=== PATIENT | female | born 1990 | race Caucasian/White ===

== ENCOUNTER → 2019-02-03 | Outpatient (REF) | payer OTHER | LOC: M LAB REF 11:38 | PROVIDERS: ATTEND Obstetrics & Gynecology | DX: Z12.4 Encounter for screening for malignant neoplasm of cervix (principal) ==

== ENCOUNTER → 2020-08-09 | Outpatient (CLI) | payer OTHER ==
--- NOTE | 2020-08-09 10:31 | REP ---
INDICATION: RIHGT KNEE PAIN. COMPARISON: None. TECHNIQUE: AP, lateral, sunrise and tunnel views of the right knee FINDINGS: Osseous structures and joint spaces are essentially age-appropriate. No overt osteoarthritic degenerative changes are appreciated. No obvious effusion. No acute or healed injury identified. IMPRESSION: Age-appropriate right knee radiographs. <Electronically signed by Ignacio Gomez > 08/09/20 1025
== END ==
LOC: M SOG 09:25
PROVIDERS: ATTEND Orthopaedic Surgery Sports Medicine
DX: S83.281A Other tear of lateral meniscus, current injury, right knee, initial encounter (principal); X58.XXXA Exposure to other specified factors, initial encounter; Y92.9 Unspecified place or not applicable

== ENCOUNTER → 2020-08-19 | Outpatient (CLI) | payer OTHER ==
--- NOTE | 2020-08-19 17:58 | REP ---
INDICATION: MENISCUS TEAR. COMPARISON: Comparison knee radiographs are from August 09, 2020.. TECHNIQUE: Axial, coronal, and sagittal imaging planes utilized. T1, proton density, and T2 weighted scans are obtained in the usual fashion with without fat saturation. FINDINGS: There is a fairly large joint effusion filling the suprapatellar bursa. No Monzon's cyst is appreciated. There are small medial and lateral suprapatellar plica and some redundant synovium. There is extra-articular T2 hyperintense edema in the prepatellar soft tissues. Patellar tendon is intact. Quadriceps tendon is unremarkable. Anterior and posterior cruciate ligaments are intact. There is no evidence of medial or lateral collateral ligament disruption. No medial or lateral meniscal tear is appreciated. There is moderate partial thickness chondromalacia lesion in the medial femoral condyle posteriorly. This measures 8 mm in medial to lateral span by 6 mm anterior to posterior. There is mild chondromalacia in the lateral femoral condyle. Mild fissuring is seen in the central patellar articular cartilage. IMPRESSION: Multifocal chondromalacia. Fairly large joint effusion. No evidence of meniscal tear seen. <Electronically signed by Delon Pardo > 08/19/20 0119
== END ==
LOC: M PLARAD 09:09
PROVIDERS: ATTEND Orthopaedic Surgery Sports Medicine
DX: S83.281A Other tear of lateral meniscus, current injury, right knee, initial encounter (principal)

== ENCOUNTER → 2020-08-26 | Outpatient (REF) | payer OTHER ==
[2020-08-26 18:14] LABS: SOURCE, BODY FLUID OTHER; SYNOVIAL FLUID COLOR YELLOW (YELLOW)
[2020-08-26 20:08] LABS: CRYSTALS, BODY FLUID NONE SEEN (NONE SEEN)
[2020-08-27 09:00] LABS: BODY FLUID RHEUMATOID SCREEN NEGATIVE (NEGATIVE)
[2020-08-27 09:02] LABS: MUCIN CLOT TEST 4+ (4+)
== END ==
LOC: M LAB REF 17:27
PROVIDERS: ATTEND Orthopaedic Surgery
DX: Z00.00 Encounter for general adult medical examination without abnormal findings (principal)

== ENCOUNTER → 2024-04-21 | Outpatient (REF) | payer OTHER ==
[2024-04-23 16:22] LABS: HPV APTIMA Not Detected (Not Detected)
== END ==
LOC: M SFHCWAGY 13:43
PROVIDERS: ATTEND Nurse Practitioner Family
DX: Z12.4 Encounter for screening for malignant neoplasm of cervix (principal)